=== PATIENT | male | born 1950 | race Caucasian/White ===

== ENCOUNTER → 2018-03-06 13:05 | Outpatient (CLI) | payer MEDICARE, BC ==
[2012-05-17 08:49] VITALS: BMI 35.7
== END | disposition home or self-care (01) ==
LOC: D.CT 13:05
DX: M25.551 Pain in right hip (principal)

== ENCOUNTER → 2018-03-23 13:11 | Outpatient (CLI) | payer MEDICARE, BC ==
[2012-05-17 08:49] VITALS: BMI 35.7
== END | disposition home or self-care (01) ==
LOC: D.MRI 13:11
DX: M25.551 Pain in right hip (principal)

== ENCOUNTER → 2018-05-07 09:06 | Outpatient (CLI) | payer MEDICARE, BC ==
[2012-05-17 08:49] VITALS: BMI 35.7
== END | disposition home or self-care (01) ==
LOC: D.SP 09:06 → D.RAD 10:00 → D.SP 10:00
DX: M25.551 Pain in right hip (principal); Z01.812 Encounter for preprocedural laboratory examination

== ENCOUNTER → 2018-06-18 12:42 | Outpatient (CLI) | payer MEDICARE, BC ==
[2012-05-17 08:49] VITALS: BMI 35.7
== END | disposition home or self-care (01) ==
LOC: D.LABREF 12:42
DX: M16.11 Unilateral primary osteoarthritis, right hip (principal); Z11.8 Encounter for screening for other infectious and parasitic diseases

== ENCOUNTER 2018-07-18 10:00 | Inpatient (IN) | payer MEDICARE, BC ==
[~2018-07-18] VITALS: Ht 185.4 cm; Wt 125.0 kg
[~2018-07-18 10:00] MED LIST: MOBIC7.5 MG PO; OMEPRAZOLE20 M1 PO; PRAVACHOL40 MG PO
[2018-07-18 11:42] LABS: BASOPHILS 0.6 % (0-2); EOSINOPHILS 4.3 % (0-7); HEMOGLOBIN 15.8 g/dL (13.5-17.5); IMMATURE GRANULOCYTES 3.2 % (0-5); LYMPHOCYTES 23.9 % (15-50); MCH 32.3 pg (26.0-34.0); MCHC 35.9 g/dL (31.0-37.0); MEAN PLATELET VOLUME 9.3 fL (7.4-10.4); MONOCYTES 9.9 % (2-11); NEUTROPHILS 58.1 % (40-80); PLATELET COUNT 239 10x3/uL (130-400); RBC 4.89 10x6/uL (4.20-6.10); RDW 12.2 % (11.5-14.5); WBC 7.3 10x3/uL (4.8-10.8)
[2018-07-18 11:52] LABS: APTT 31.1 SECONDS (22.8-39.4); CALC OSMOLALITY 282 mosm/kg (275-300); CALCIUM 8.7 mg/dL (8.5-10.1); CARBON DIOXIDE 30.4 mmol/L (21.0-32.0); CHLORIDE - SERUM 104 mmol/L (98-107); CREATININE - SERUM 0.9 mg/dL (0.6-1.3); GLUCOSE 83 mg/dL (74-106); INR 1.03 (0.85-1.17); POTASSIUM - SERUM 4.3 mmol/L (3.5-5.1); SODIUM 142 mmol/L (136-145); UREA NITROGEN 14 mg/dL (7-18); eGFR NON AFRICAN AMERICAN 89 mL/min (90-120)
[2018-07-18 11:58] LABS: APPEARANCE CLEAR (CLEAR); BACTERIA FEW /hpf (NONE SEEN); BILIRUBIN NEGATIVE (NEGATIVE); COLOR YELLOW (YELLOW); EPITHELIAL CELLS 0-5 /hpf (0-5); GLUCOSE NEGATIVE (NEGATIVE); KETONE NEGATIVE (NEGATIVE); MUCUS >1+ /lpf (NONE SEEN); NITRITE NEGATIVE (NEGATIVE); PROTEIN NEGATIVE (NEGATIVE); SPECIFIC GRAVITY 1.015 (1.005-1.020); UROBILINOGEN NORMAL (NORMAL); WHITE CELLS - URINE 0-5 /hpf (0-5)
[2018-07-24] VITALS (9 sets, daily range): BP systolic 115–146; BP diastolic 67–86; Ht 185.4 cm; Wt 125.0 kg
[2018-07-24] MEDS ORDERED: BAYER CHEWABLE81 MG PO (06:15)
--- NOTE | 2018-07-24 11:00 | NUR ---
PATIENT RECIEVED VIA STRETCHER FROM RECOVERY FOLLOWING TOTAL RIGHT HIP REPLACEMENT. DRESSING TO RIGHT HIP C/D/I. PATIENT RATES PAIN AT 5 WITH NO NEED FOR PAIN MEDICATIONS AT THIS TIME. CL IN REACH
--- NOTE | 2018-07-24 12:04 | OP ---
PATIENT NAME: MARCY BROWN MEDICAL RECORD: [id number] :50 LOCATION:D.MS [id number] ADMISSION DATE:07/24/18 SURGEON: ОЛЕГ RODRIGUEZ DO DATE OF OPERATION: 07/24/2018 PROCEDURE PERFORMED: Right total hip arthroplasty. PREOPERATIVE DIAGNOSIS: Right hip osteoarthritis. POSTOPERATIVE DIAGNOSIS: Right hip osteoarthritis. INDICATIONS: Mr. Brown is a 68-year-old male who presented to my office couple months ago complaining of right hip pain and immobility. He had no internal rotation and pain with any movement of his right hip. We got an intra-articular injection, which did relieve the pain for a few weeks, but then it came right back. He wanted the surgery as it was affecting his activities of daily living and could not bear the pain anymore. He was informed of the risks and benefits of the procedure including infection, bleeding, damage to nerve and vessels, need for further surgery, blood clots, and even and he signed the consent. SURGEON: Олег Rodriguez DO DESCRIPTION OF PROCEDURE: The patient received a block by anesthesia in the preoperative area, was given 80 mg of gentamicin and 3 grams of Ancef preoperatively. Taken to the operative suite, was sedated, then intubated, and placed over on to the [place] table and positioned. The right hip was prepped and draped in sterile fashion. A timeout was performed, everyone was in agreement with the correct side, site, patient, and procedure. The incision then began over the tensor fascia john muscle, first with a 10 blade, then a plasma knife was used to dissect down to the fascia. The fascia was incised. The fascia was taken anteriorly and the muscle belly posteriorly. The interval then was opened between the rectus and the tensor fascia john. The rectus was taken medially and the tensor fascia john laterally with an large Adson Reid. The fascia was then opened at the next layer and the ascending branch of lateral femoral circumflex artery was encountered. It was tied off and coagulated with the Aquamantys and then divided. The capsule was then exposed and was opened and then tagged with #2 Ethibond. The femoral neck was then exposed. Hohmann was placed around it and the neck cut was made. Once the neck cut was made, the head was removed and then a Charnley retractor was placed in the hip, exposing the acetabulum. Labrum was then removed as well as the pulvinar. Reaming then began, first medializing and then reaming up to a 54. This had good bleeding bone. A 54 cup was impacted into place and was done under fluoroscopy, it was very solid and attempted to move with a Donnie and it did not move at all, it was in good position. The femur was then exposed after having to release the posterior capsule and the ischiofemoral ligament of the pubofemoral ligament in order to get some external rotation. The canal finder and cookie cutter were then used and then broach was used up to a 15. This was trialled with a -3, seemed a little short and this was taken out and a 16 broach was used as the 15 was tad loose. A 16 broach was put in and a 16 implant was put in with a -3 neck and this was reduced and confirmed on x-ray to be in good position and very close to equal if not exactly equal lengths from the left hip. There were no fractures seen on x-ray. The wound was then thoroughly irrigated and Jeffery was placed in the wound and antibiotic powder of vancomycin, tobramycin and then the capsule was closed with the #2 Ethibond that was tied. The tensor fascia john fascia was then closed with #1 Vicryl, first a lzqiyq-ym-uomua stitch in the OPERATIVE REPORT [id number] MARCY BROWN running-locking stitch. This layer was irrigated as well and then a more Jeffery, vancomycin, and tobramycin powder was placed, and then the skin was closed with 2-0 Vicryl in an inverted interrupted fashion and 4-0 Monocryl running on the skin and Prineo glue was placed on the skin and this was covered with Telfa and Tegaderm. Upon closure, there was a small piece of glass noted on the table, it had antibiotic powder on it, likely from the antibiotic glass container, there was none seen in the wound and certainly nothing seen on x-ray, just as a side note. COMPLICATIONS: None. BLOOD LOSS: Approximately 200 mL. TRANSINT:[id number] Voice Confirmation ID: [id number] DOCUMENT ID: [id number] ОЛЕГ RODRIGUEZ DO at 1204 CC: PETEY ELLIS [id number] DICTATION DATE: 07/24/18929 STROBOSCOPE OPERATOR: 07/24/18 1115 ADM IN [place] [id number] [place] [id number]
--- NOTE | 2018-07-24 12:04 | OP ---
PATIENT NAME: MARCY BROWN MEDICAL RECORD: [id number] :50 LOCATION:O[facility]12 ADMISSION DATE:07/24/18 SURGEON: KEVIN RODRIGUEZ DO DATE OF OPERATION: 07/24/2018 ADDENDUM transport assistant was Ryley Miller, advanced nurse practitioner. Ryley assisted with closing and holding retractors, and the procedure could not have been performed without his assistance. TRANSINT:[id number] Voice Confirmation ID: [id number] DOCUMENT ID: [id number] KEVIN RODRIGUEZ DO at 1204 CC: [id number] DICTATION DATE: 07/24/18 1004 SHOWER ATTENDANT: 07/24/18 1106 ADM IN [place] [id number] [place] [address]
--- NOTE | 2018-07-24 20:30 | NUR ---
PT SITTING UP IN BED W/ DAUGHTER AT BEDSIDE. NO SIGNS OF DISTRESS. PT STATES PAIN 5/10. GAVE OXY ORDERED. PROVIDED PT W/ ICE PACK TO RIGHT HIP. IV RIGHT HAND INFUSING 1/2NS @ 50. SCDS IN PLACE. NO OTHER NEEDS OR COMPLAINTS AT THIS TIME. CL IN REACH, WILL CONTINUE TO MONITOR
[2018-07-25] VITALS: BP 114/62
[2018-07-25 04:00] VITALS: BP 132/57; BP 97/55
[2018-07-25 05:42] LABS: BASOPHILS 0 % (0-2); EOSINOPHILS 0 % (0-7); HEMATOCRIT 40.9 % (42.0-54.0); HEMOGLOBIN 14.2 g/dL (13.5-17.5); IMMATURE GRANULOCYTES 0.4 % (0-5); LYMPHOCYTES 4.6 % (15-50); MCH 31.7 pg (26.0-34.0); MCHC 34.7 g/dL (31.0-37.0); MCV 91.3 fL (80.0-100.0); MEAN PLATELET VOLUME 9.4 fL (7.4-10.4); MONOCYTES 5.4 % (2-11); NEUTROPHILS 89.6 % (40-80); PLATELET COUNT 237 10x3/uL (130-400); RBC 4.48 10x6/uL (4.20-6.10); RDW 12.6 % (11.5-14.5); WBC 13.5 10x3/uL (4.8-10.8)
[2018-07-25 06:23] LABS: ALBUMIN 3.1 g/dL (3.4-5.0); ALKALINE PHOSPHATASE 52 U/L (46-116); ALT (SGPT) 31 U/L (10-68); BILIRUBIN - TOTAL 0.44 mg/dL (0.2-1.3); CALC OSMOLALITY 281 mosm/kg (275-300); CALCIUM 8.2 mg/dL (8.5-10.1); CARBON DIOXIDE 25.5 mmol/L (21.0-32.0); CHLORIDE - SERUM 103 mmol/L (98-107); CREATININE - SERUM 0.9 mg/dL (0.6-1.3); GLUCOSE 147 mg/dL (74-106); POTASSIUM - SERUM 4.4 mmol/L (3.5-5.1); SODIUM 139 mmol/L (136-145); UREA NITROGEN 14 mg/dL (7-18); eGFR NON AFRICAN AMERICAN 89 mL/min (90-120)
--- NOTE | 2018-07-25 08:42 | NUR ---
PT SITTING UP IN BED TALKING TO . DENIES PAIN. NO S/S OF ACUTE DISTRESS. CL IN PLACE.
[2018-07-25 10:04] VITALS: BP 113/62
[2018-07-25 17:34] VITALS: BP 109/58
--- NOTE | 2018-07-25 18:54 | NUR ---
PROFESSOR OF SPECIAL EDUCATION NOTE: PT RESTING IN BED WATCHING TV. DENIES PAIN. PT INQUIRING ABOUT REHAB. TOLD PT TO REQUEST TO SPEAK WITH CM IN THE AM. NO S/S OF ACUTE DISTRESS. CL IN PLACE.
--- NOTE | 2018-07-25 19:02 | NUR ---
OT NOTE: PT COMPLETED BED MOBILITY WITH SBA. PT COMPLETED EOB SITTING BALANCE WITH SBA/SPV. PT COMPLETED BUE AROM EXS FOR INCREASED AX TOLERANCE. PT COMPLETED SIMPLE HYGIENE TASKS WITH SET UP. THANK YOU, BETSEY MALLOY
--- NOTE | 2018-07-25 19:45 | NUR ---
PT SITTING UP ON SIDE OF BED, AT BEDSIDE. NO SIGNS OF DISTRESS. ALERT AND ORIENTED. PT USING WALKER FOR AMBULATION. IV RIGHT HAND SL. NO REDNESS AT INSERTION SITE, DRESSING CDI. INCISION TO RIGHT HIP CDI. PT STATES NO PAIN AT THIS TIME, ONLY SORENESS FROM WALKING TODAY. ASSISTED PT BACK INTO BED, SCDS IN PLACE. STATES NO COMPLAINTS OR NEEDS AT THIS TIME. CL IN REACH, WILL CONTINUE TO MONITOR
[2018-07-25 20:54] VITALS: BP 107/48
[2018-07-26 00:59] VITALS: BP 110/80
[2018-07-26 06:57] LABS: ALBUMIN 3.1 g/dL (3.4-5.0); ALKALINE PHOSPHATASE 53 U/L (46-116); ALT (SGPT) 26 U/L (10-68); BILIRUBIN - TOTAL 0.47 mg/dL (0.2-1.3); CALCIUM 8.3 mg/dL (8.5-10.1); CARBON DIOXIDE 29.9 mmol/L (21.0-32.0); CHLORIDE - SERUM 105 mmol/L (98-107); CREATININE - SERUM 0.8 mg/dL (0.6-1.3); POTASSIUM - SERUM 4.3 mmol/L (3.5-5.1); PROTEIN - SERUM 5.6 g/dL (6.4-8.2); SODIUM 142 mmol/L (136-145); eGFR NON AFRICAN AMERICAN > 90 mL/min (90-120)
[2018-07-26 06:58] LABS: CALC OSMOLALITY 284 mosm/kg (275-300); GLUCOSE 95 mg/dL (74-106); UREA NITROGEN 18 mg/dL (7-18)
[2018-07-26 07:16] LABS: BASOPHILS 0.3 % (0-2); EOSINOPHILS 1.2 % (0-7); HEMATOCRIT 38.2 % (42.0-54.0); HEMOGLOBIN 12.9 g/dL (13.5-17.5); IMMATURE GRANULOCYTES 0.3 % (0-5); LYMPHOCYTES 23.5 % (15-50); MCH 31.5 pg (26.0-34.0); MCHC 33.8 g/dL (31.0-37.0); MEAN PLATELET VOLUME 9.5 fL (7.4-10.4); MONOCYTES 10.3 % (2-11); NEUTROPHILS 64.4 % (40-80); PLATELET COUNT 204 10x3/uL (130-400); RBC 4.09 10x6/uL (4.20-6.10); RDW 12.9 % (11.5-14.5)
[2018-07-26 07:30] LABS: WBC 6.8 10x3/uL (4.8-10.8)
[2018-07-26 07:31] LABS: MCV 93.4 fL (80.0-100.0)
--- NOTE | 2018-07-26 07:56 | NUR ---
REC'D IN BED AWAKE AND ALERT. RESP EVEN AND UNLABORED WITH NO DISTRESS. CAN EXPRESS NEEDS AND WANTS. C/O PAIN RATING 3/10 ON PAIN SCALE WAS MEDICATED WITH OXY IR 5 MG PER ORDERS. ASSESSMENT COMPLETED. C/L IN REACH AT BEDSIDE.
[2018-07-26 08:46] VITALS: BP 127/73
--- NOTE | 2018-07-26 11:19 | MORECARE ---
CASE MANAGEMENT DISCHARGE SUMMARY PATIENT: MARCY BROWN UNIT: [id number] ADM DATE: 07/24/18 AGE: 68 : 50 SEX: M ROOM/BED: D.2212 AUTHOR: ADAIR ANAYA PHYSICIAN: REFERRING PHYSICIAN: KEVIN RODRIGUEZ DO DATE OF SERVICE: 07/26/18 Discharge Plan Patient Name: [facility]ARCY BROWN [facility] [facility] 1950 Planned Disposition: Home or Self Care Anticipated Discharge Date: Discharge Date: Expected LOS: Initial Reviewer: [email or web address] Initial Review Date: 07/24/2018 Generated: 07/26/18 12:18 pm DCPIA - Discharge Planning Initial Assessment Updated by [email or web address]: Ariella Villeda on 07/26/18 11:16 am * Is the patient Alert and Oriented? Yes * How many steps to enter\exit or inside your home? * PCP RHONDA * Pharmacy [facility] [address] * Preadmission Environment Home with Family * ADLs Independent * Equipment Shower Chair * List name and contact numbers for known caregivers / representatives who currently or will assist patient after discharge: NORM [phone] * Verbal permission to speak to the caregivers and representatives has been obtained from the patient. Yes * Community resources currently utilized None * Additional services required to return to the preadmission environment? Yes * Can the patient safely return to the preadmission environment? Yes * Has this patient been hospitalized within the prior 30 days at any hospital? No External Providers External Provider: [facility] Next Contact Date: Service Request Date: Service Type: Resolution: Reviewer: Comments: Patient Name: MARCY BROWN Page [id number] at 1119 All edits/amendments must be made on the electronic document DICTATION DATE: 07/26/181117 MAINTENANCE ENGINEER: IRAM 07/26/181117 RPT#: [id number] DC DATE: STATUS: ADM IN [facility] [address] [place] [address] END OF REPORT
--- NOTE | 2018-07-26 11:26 | MORECARE ---
CASE MANAGEMENT DISCHARGE SUMMARY PATIENT: MARCY BROWN UNIT: [id number] ADM DATE: 07/24/18 AGE: 68 : 50 SEX: M ROOM/BED: D.2212 AUTHOR: ADAIR ANAYA PHYSICIAN: REFERRING PHYSICIAN: KEVIN RODRIGUEZ DO DATE OF SERVICE: 07/26/18 Discharge Plan Patient Name: MARCY BROWN Facility: [facility]:[place] : 1950 Planned Disposition: Home or Self Care Anticipated Discharge Date: Discharge Date: Expected LOS: Initial Reviewer: [email or web address] Initial Review Date: 07/24/2018 Generated: 07/26/18 12:26 pm Comments DCP- Discharge Planning Updated by [email or web address]: Ariella Villeda on 07/26/18 10:[address] Patient Name: MARCY BROWN Admission Status: Elective Accout number: [id number] Admission Date: 07-24-2018 : 1950 Admission Diagnosis: Attending: KEVIN RODRIGUEZ Current LOS: 2 Anticipated DC Date: Planned Disposition: Home or Self Care Primary Insurance: MEDICARE A & B Discharge Planning Comments: CM met with patient to assess discharge planning needs. Patient lives independently with his at home where he plans to return at discharge today. He has one step in his home. He does have a shower chair at home. He will need a walker and BSC at [place]. I have ordered this through [facility] & they will deliver to the hospital. He would like to do his PT at [facility]. I have made that appointment for Sunday 07/30 @ 10:45 am. I spoke with Henry. Patient's will be the one to drive him home at [place]. CM will continue to follow and assist with DC planning as needed Paleology Professor: Ariella Villeda DCPIA - Discharge Planning Initial Assessment Updated by [email or web address]: Ariella Villeda on 07/26/18 11:16 am * Is the patient Alert and Oriented? Yes * How many steps to enter\exit or inside your home? * PCP RHONDA * Pharmacy [facility] [address] * Preadmission Environment Home with Family * ADLs Independent * Equipment Shower Chair * List name and contact numbers for known caregivers / representatives who currently or will assist patient after discharge: NORM [phone] * Verbal permission to speak to the caregivers and representatives has been obtained from the patient. Yes * Community resources currently utilized None * Additional services required to return to the preadmission environment? Yes * Can the patient safely return to the preadmission environment? Yes * Has this patient been hospitalized within the prior 30 days at any hospital? No Last DP export: 07/26/18 10:19 a Patient Name: MARCY BROWN Page 47299 at 1126 All edits/amendments must be made on the electronic document DICTATION DATE: 07/26/18 112 GUN STRIPER: IRAM 07/26/18 112 RPT#: [id number] DC DATE: STATUS: ADM IN [facility] [address] [place] [address] END OF REPORT
[2018-07-26] MEDS ORDERED: KEFLEX500 MG PO (12:12)
[2018-07-26] MEDS ORDERED: BAYER CHEWABLE81 MG PO (12:12)
[2018-07-26] MEDS ORDERED: OXYCODONE HCL5 M1 PO (12:13)
--- NOTE | 2018-07-26 12:45 | NUR ---
OT NOTE: UPON ENTERING ROOM, WAS AT BEDSIDE AND PT WAS DRESSED AND READY TO GO HOME. HE REPORTED GETTING UP SEVERAL TIMES TODAY WITHOUT ASSIST AND AMB IN ROOM WITH WALKER. QUESTIONS ANSWERED REGARDING OUT PT THERAPY. ALSO ANSWERED QUESTIONS REGARDING ELEVATED TOILET SEATS AND OTHER ADAP EQUIP THAT HE MAY NEED WHEN GETTTING HOME. REPORTED VERY MINIMAL PAIN AND WAS ABLE TO GET IN AND OUT OF BED WITHOUT ASSIST. OUMOU FRAIRE, OTR/L
--- NOTE | 2018-07-26 15:23 | NUR ---
DC HOME AT THIS TIME PT AND AND VOICE UNDERSTANDING OF DC ORDERS. IV DC. WAS IN STABLE CONDITION UPON DEPARTURE.
--- NOTE | 2018-07-27 11:50 | MORECARE ---
CASE MANAGEMENT DISCHARGE SUMMARY PATIENT: MARCY BROWN UNIT: [id number] ADM DATE: 07/24/18 AGE: 68 : 50 SEX: M ROOM/BED: D.2212 AUTHOR: ADAIR ANAYA PHYSICIAN: REFERRING PHYSICIAN: KEVIN RODRIGUEZ DO DATE OF SERVICE: 07/27/18 Discharge Plan Patient Name: MARCY BROWN Facility: [facility]:[place] : 1950 Planned Disposition: Home or Self Care Anticipated Discharge Date: Discharge Date: 07/26/2018 Expected LOS: 0 Initial Reviewer: [email or web address] Initial Review Date: 07/24/2018 Generated: 07/27/18 12:49 pm Comments DCP- Discharge Planning Updated by [email or web address]: Ariella Villeda on 07/26/18 10:[address] Patient Name: MARCY BROWN Admission Status: Elective Accout number: [id number] Admission Date: 07-24-2018 : 1950 Admission Diagnosis: Attending: KEVIN RODRIGUEZ Current LOS: 2 Anticipated DC Date: Planned Disposition: Home or Self Care Primary Insurance: MEDICARE A & B Discharge Planning Comments: CM met with patient to assess discharge planning needs. Patient lives independently with his at home where he plans to return at discharge today. He has one step in his home. He does have a shower chair at home. He will need a walker and BSC at [place]. I have ordered this through [facility] & they will deliver to the hospital. He would like to do his PT at [facility]. I have made that appointment for Sunday 07/30 @ 10:45 am. I spoke with Henry. Patient's will be the one to drive him home at [place]. CM will continue to follow and assist with DC planning as needed Automotive Refinish Technician: Ariella Villeda DCPIA - Discharge Planning Initial Assessment Updated by [email or web address]: Ariella Villeda on 07/26/18 11:16 am * Is the patient Alert and Oriented? Yes * How many steps to enter\exit or inside your home? * PCP RHONDA * Pharmacy [facility] [address] * Preadmission Environment Home with Family * ADLs Independent * Equipment Shower Chair * List name and contact numbers for known caregivers / representatives who currently or will assist patient after discharge: NORM [phone] * Verbal permission to speak to the caregivers and representatives has been obtained from the patient. Yes * Community resources currently utilized None * Additional services required to return to the preadmission environment? Yes * Can the patient safely return to the preadmission environment? Yes * Has this patient been hospitalized within the prior 30 days at any hospital? No Last DP export: 07/26/18 10:26 a Patient Name: MARCY BROWN Page 07144 at 1150 All edits/amendments must be made on the electronic document DICTATION DATE: 07/27/181148 INSTITUTION LIBRARIAN: IRAM 07/27/18 1149 RPT#: [id number] DC DATE:07/26/18 STATUS: DIS IN [facility] [address] [place] [address] END OF REPORT
== END 2018-07-26 15:25 | disposition home or self-care (01) | DRG 470 ==
LOC: D.SDCHOLD 07-24 05:00 → D.MS 07-24 05:00 → D.SDCHOLD 07-24 07:00 → D.MS 07-24 10:40
PROVIDERS: Family Medicine; ADMIT Orthopaedic Surgery
PROC: 0SR90JZ Replacement of Right Hip Joint with Synthetic Substitute, Open Approach (ICD-10-PCS; principal; 2018-07-24 07:00)
DX: M16.11 Unilateral primary osteoarthritis, right hip (principal); D62 Acute posthemorrhagic anemia; E78.5 Hyperlipidemia, unspecified

== ENCOUNTER → 2019-02-12 07:28 | Outpatient (CLI) | payer MEDICARE, BC ==
[2018-07-24 12:05] VITALS: BMI 36.3
[~2019-02-12 07:28] MED LIST changes: +BAYER CHEWABLE81 MG PO; +KEFLEX500 MG PO; +OXYCODONE HCL5 M1 PO
== END | disposition home or self-care (01) ==
LOC: D.CT 07:28
PROVIDERS: ATTEND Orthopaedic Surgery
DX: K40.90 Unilateral inguinal hernia, without obstruction or gangrene, not specified as recurrent (principal)

== ENCOUNTER → 2019-04-08 17:07 | Outpatient (CLI) | payer MEDICARE, BC ==
[2018-07-24 12:05] VITALS: BMI 36.3
[~2019-04-08 17:07] MED LIST changes: +CRANBERRY EXTRACT PO; +MAGNESIUM OXID250 MG PO; +OSTEO BI-FLEX1 EAC1 PO; +ULTRAM50 MG PO; +VITAMIN D31000 UNI2 PO; +VITAMIN D5000 UNIT PO
== END | disposition home or self-care (01) ==
LOC: D.LABREF 17:07
PROVIDERS: ATTEND Orthopaedic Surgery
DX: M17.12 Unilateral primary osteoarthritis, left knee (principal)

== ENCOUNTER 2019-04-16 11:30 | Inpatient (IN) | payer MEDICARE, BC ==
[~2019-04-16] VITALS: Ht 185.4 cm; Wt 118.2 kg
[~2019-04-16 11:30] MED LIST changes: -CRANBERRY EXTRACT PO; -MAGNESIUM OXID250 MG PO; -OSTEO BI-FLEX1 EAC1 PO; -ULTRAM50 MG PO; -VITAMIN D31000 UNI2 PO; -VITAMIN D5000 UNIT PO
[2019-06-03] MEDS ORDERED: CRANBERRY EXTRACT PO (08:52)
[2019-06-03] MEDS ORDERED: VITAMIN D31000 UNI2 PO (08:52)
[2019-06-03] MEDS ORDERED: ULTRAM50 MG PO (08:52)
[2019-06-03] MEDS ORDERED: OSTEO BI-FLEX1 EAC1 PO (08:53)
[2019-06-03 09:55] LABS: BASOPHILS 0.2 % (0-2); EOSINOPHILS 4.8 % (0-7); HEMATOCRIT 43.7 % (42.0-54.0); HEMOGLOBIN 15.3 g/dL (13.5-17.5); IMMATURE GRANULOCYTES 0.5 % (0-5); LYMPHOCYTES 29.1 % (15-50); MCH 32.3 pg (26.0-34.0); MCV 92.4 fL (80.0-100.0); MEAN PLATELET VOLUME 9.2 fL (7.4-10.4); MONOCYTES 10.3 % (2-11); NEUTROPHILS 55.1 % (40-80); PLATELET COUNT 177 10x3/uL (130-400); RBC 4.73 10x6/uL (4.20-6.10); RDW 12.7 % (11.5-14.5); WBC 4.4 10x3/uL (4.8-10.8)
[2019-06-03 10:04] LABS: APPEARANCE CLEAR (CLEAR); BILIRUBIN NEGATIVE (NEGATIVE); COLOR DK YELLOW (YELLOW); GLUCOSE NEGATIVE (NEGATIVE); KETONE NEGATIVE (NEGATIVE); NITRITE NEGATIVE (NEGATIVE); PROTEIN NEGATIVE (NEGATIVE); SPECIFIC GRAVITY 1.015 (1.005-1.020); UROBILINOGEN NORMAL (NORMAL)
[2019-06-03 10:05] LABS: APTT 31.2 SECONDS (22.8-39.4); INR 1.03 (0.85-1.17)
[2019-06-03 10:12] LABS: CALC OSMOLALITY 279 mosm/kg (275-300); CALCIUM 8.7 mg/dL (8.5-10.1); CARBON DIOXIDE 28.9 mmol/L (21.0-32.0); CHLORIDE - SERUM 106 mmol/L (98-107); CREATININE - SERUM 0.7 mg/dL (0.6-1.3); GLUCOSE 103 mg/dL (74-106); POTASSIUM - SERUM 4.3 mmol/L (3.5-5.1); SODIUM 139 mmol/L (136-145); UREA NITROGEN 17 mg/dL (7-18); eGFR NON AFRICAN AMERICAN > 90 mL/min (90-120)
[2019-06-04] VITALS (11 sets, daily range): BP systolic 106–136; BP diastolic 61–82; Ht 185.4 cm; Wt 118.2 kg
[2019-06-04] MEDS ORDERED: BAYER CHEWABLE81 MG PO (06:16)
[2019-06-04] MEDS ORDERED: MAGNESIUM OXID250 MG PO (06:17)
[2019-06-04] MEDS ORDERED: VITAMIN D5000 UNIT PO (06:17)
--- NOTE | 2019-06-04 08:06 | NUR ---
PLASMA BLADE SET TO 6/8 BOVIE PAD RIGHT THIGH [id number] EXP 07/18/20 PREPPED LEFT LEG FROM UPPER THIGH TO TOES CIRCUMFERENTIALLY WITH ALCOHOL/HIBICLENS AND DRIED WITH A TOWEL. THEN PREPPED WITH CHLORAPREP. STERILE GOWN AND GLOVES WORN DURING PREP. TRAFFIC MONITORED IN AND OUT OF ROOM AND KEPT TO A MINIMUM. IRRIGATED WITH NORMAL SALINE AND STERILE BETADINE
--- NOTE | 2019-06-04 12:39 | OP ---
PATIENT NAME: MARCY BROWN MEDICAL RECORD: [id number] :50 LOCATION:D.MS Lott2226 ADMISSION DATE:06/04/19 SURGEON: ОЛЕГ RODRIGUEZ DO DATE OF OPERATION: 06/04/2019 PROCEDURE PERFORMED: Left total knee arthroplasty. PREOPERATIVE DIAGNOSIS: Left knee osteoarthritis. POSTOPERATIVE DIAGNOSIS: Left knee osteoarthritis. INDICATIONS: Mr. Brown is a 69-year-old male who has had left knee pain for quite some time. He has been dealing with injections and other nonoperative treatment to no avail. He is tired of dealing with the pain and suffering and affecting his activities of daily living and wanted something surgically done. Informed him of the risks and benefits of the procedure including infection, bleeding, damage to nerves and vessels, failure of implants, loosening, continued pain, loss of range of motion, blood clots, and even and he signed the consent. I was assisted by Baron Miller, advanced nurse practitioner. He assisted with closing and holding retractors as well as Ritchie Llanes, certified surgical assistant project manager. SURGEON: Олег Rodriguez DO DESCRIPTION OF PROCEDURE: The patient received a block by anesthesia in the preoperative area. He was given 2 grams Ancef and 80 mg gentamicin preoperatively. He was taken to the operative suite, laid in supine position, given general anesthetic. LMA was placed. Left lower extremity was then prepped and draped in sterile fashion. A timeout was performed and everyone was in agreement with the correct side, site, patient and procedure. Once that was completed, he was prepped and draped. I reprepped over the skin of the anterior knee with the ChloraPrep and then I marked out the incision after that, dried after 3 minutes and then placed Ioban over it. The incision then began after the patient received a gram of TXA down through the skin to the capsule. Fresh 10-blade was used to medial parapatellar approach and the knee was extended and part of the fat pad was removed and the patella was milled down and the ACL was removed. The femoral canal was then entered and the distal femur was cut. The proximal tibia was exposed and cut as well off a guide, cut 2 more off the tibia and then 2 more off the femur in order to fit the 10 extension block and this fit very well. The menisci were removed. Any bleeding was coagulated with Aquamantys throughout the procedure. The femur was then flexed up and sized to be a 77.0 and chamfer cuts were made. Once chamfer cuts were made, the tibial poly and tray was floated in and rotation was marked. The lug holes for the patella and the femur were drilled at that time and then the tibia was exposed, sized to be 75, it was drilled and punched and extra holes put in the tibia. The cement was then mixed. Cement was placed in the tibia and on the implant, impacted into place. Excess cement was removed. The femur was then impacted on and poly in between and brought to extension. The patella holes were cleaned out and re-drilled to make it more deeper and the cement was placed in them and on the poly and a squeezer was held into place while the cement dried. Excess cement was removed. We then irrigated the knee thoroughly and then a mixture of 500 mL of normal saline and 17 fluid ounces of 10% povidone iodine was placed in the wound solution and left for 3 minutes. This was then suctioned out. We sized and tried a deep dish anterior stabilized poly, it was too tight and did not have the motion we wanted and therefore a CR standard 10 poly was placed and OPERATIVE REPORT [id number] KEVINMARCY Harkins fit very well. Had good motion, flexion, extension, very stable in extension and flexion and varus valgus stability. The knee was then thoroughly irrigated, placed Jeffery and vancomycin and tobramycin powder in the wound. The capsule was then closed with #2 Ethibond in a pbxcoq-ch-iadmw fashion, skin with 2-0 Vicryl inverted interrupted fashion and a ZipLine placed on the knee and Adaptic, 4 x 4s, ABD, Webril, Alexsander wrap was then placed on the knee. He was then awakened and taken to recovery in stable condition. The poly was locked into place with a locking bar prior to closure of the capsule. He was awakened and taken to recovery in stable condition. Blood loss was approximately 200 mL. COMPLICATIONS: None. TRANSINT:[id number] Voice Confirmation ID: [id number] DOCUMENT ID: [id number] ОЛЕГ RODRIGUEZ DO at 1239 CC: [id number] DICTATION DATE: 06/04/19928 CANDLE MOLDER MACHINE: 06/04/19 1202 ADM IN [facility] [address] [place] [id number]
--- NOTE | 2019-06-04 13:00 | NUR ---
C/O INTENSE LEFT KNEE PAIN LEVEL 7. GIVEN 20MG OXY IR WITH 50MG VISTIRIL PO FOR SAME. WILL MONITOR.
--- NOTE | 2019-06-04 13:45 | NUR ---
WORKED WITH PT AT BEDSIDE. C/O NAUSEA WITH ACTIVITY. WILL MONITOR.
--- NOTE | 2019-06-04 15:42 | NUR ---
RESTING QUIETLY WITH EYES CLOSED.
--- NOTE | 2019-06-04 18:35 | NUR ---
ATE ALL OF SUPPER. DENIES NEEDS. NO CHANGES NOTED.
--- NOTE | 2019-06-04 20:00 | NUR ---
ASSESSMENT SPER FLOWSHEET. DRSG TO LEFT KNEE C/D/I CEE ARAUJO AND GAVI OSEI IN PLACE LT.LEG IN CPM MACHINE. IV PATENT RT HAND WITH NS AT 50CC'S/HR. O2 ON 2L/M PER NC. NO DISTRESS.SCD TO RT LEG FOR DVT MEASURES.
--- NOTE | 2019-06-04 21:30 | NUR ---
MEDS GIVEN PER AUG. DENIES NEEDS CPM OFF AT THIS TIME BODY IN GOOD ALIGNMENT.
--- NOTE | 2019-06-05 | NUR ---
EYES CLOSED RESPIRATIONS WITH EASE AND UNLABORED. MEDS PER AUG.
[2019-06-05 01:04] VITALS: BP 114/58
--- NOTE | 2019-06-05 03:00 | NUR ---
RESTING QUIETLY VOIDS IN URINAL. SR UP X2 CAQLL LIGHT WITHIN REACH.
--- NOTE | 2019-06-05 05:39 | NUR ---
CPM PLACED BACK ON LEFT LEG PER VAMPER'S.
[2019-06-05 05:50] VITALS: BP 117/63
[2019-06-05 06:33] LABS: BASOPHILS 0 % (0-2); EOSINOPHILS 0 % (0-7); HEMATOCRIT 40.1 % (42.0-54.0); HEMOGLOBIN 13.4 g/dL (13.5-17.5); IMMATURE GRANULOCYTES 0.1 % (0-5); LYMPHOCYTES 10.4 % (15-50); MCH 31.8 pg (26.0-34.0); MCHC 33.4 g/dL (31.0-37.0); MEAN PLATELET VOLUME 9.5 fL (7.4-10.4); MONOCYTES 10.9 % (2-11); NEUTROPHILS 78.6 % (40-80); PLATELET COUNT 189 10x3/uL (130-400); RBC 4.22 10x6/uL (4.20-6.10)
[2019-06-05 06:38] LABS: WBC 7.5 10x3/uL (4.8-10.8)
[2019-06-05 06:44] LABS: CALC OSMOLALITY 282 mosm/kg (275-300); CALCIUM 8.1 mg/dL (8.5-10.1); CARBON DIOXIDE 28.5 mmol/L (21.0-32.0); CHLORIDE - SERUM 106 mmol/L (98-107); CREATININE - SERUM 0.8 mg/dL (0.6-1.3); GLUCOSE 106 mg/dL (74-106); POTASSIUM - SERUM 4.4 mmol/L (3.5-5.1); SODIUM 141 mmol/L (136-145); UREA NITROGEN 17 mg/dL (7-18); eGFR NON AFRICAN AMERICAN > 90 mL/min (90-120)
[2019-06-05 08:11] VITALS: BP 111/60
--- NOTE | 2019-06-05 09:07 | NUR ---
RESTING IN BED, CPM IN PLACE TO LEFT KNEE, IN ROOM, CONT TO MONITOR PAIN
[2019-06-05 12:15] VITALS: BP 132/80
[2019-06-05 16:09] VITALS: BP 118/70
[2019-06-05 20:00] VITALS: BP 116/61
--- NOTE | 2019-06-05 21:20 | NUR ---
LYING IN BED. ALERT AND ORIENTED X4. CEE WRAP NOTED TO LT KNEE. PEDAL PULSES PRESENT BILAT. BRUISES NOTED TO BUE. SCD NOTED TO RLE. PLEXI NOTED TO LT FOOT. RATES PAIN 2. DENIES NEED FOR PAIN MED. RESP EVEN AND NONLABORED. 1/2 NS @ 50 MLHR INFUSING IN RT HAND WITHOUT DIFF. SR ELEVATED X2. CL IN REACH.
[2019-06-06] VITALS: BP 132/80
--- NOTE | 2019-06-06 01:16 | NUR ---
LYING IN BED. IV BEEPING. DENIES NEED FOR PAIN MED. RESP NONLABORED. NO DISTRESS. CL IN REACH.
[2019-06-06 04:00] VITALS: BP 137/82
[2019-06-06 06:37] LABS: CALC OSMOLALITY 283 mosm/kg (275-300); CALCIUM 8.3 mg/dL (8.5-10.1); CARBON DIOXIDE 29.7 mmol/L (21.0-32.0); CHLORIDE - SERUM 108 mmol/L (98-107); CREATININE - SERUM 0.7 mg/dL (0.6-1.3); GLUCOSE 102 mg/dL (74-106); POTASSIUM - SERUM 3.9 mmol/L (3.5-5.1); SODIUM 142 mmol/L (136-145); UREA NITROGEN 14 mg/dL (7-18); eGFR NON AFRICAN AMERICAN > 90 mL/min (90-120)
[2019-06-06 06:45] LABS: HEMATOCRIT 34.2 % (42.0-54.0); HEMOGLOBIN 12.1 g/dL (13.5-17.5); LYMPHOCYTES 27.6 % (15-50); MCH 32.7 pg (26.0-34.0); MCHC 35.4 g/dL (31.0-37.0); MEAN PLATELET VOLUME 9.2 fL (7.4-10.4); NEUTROPHILS 61.9 % (40-80); RDW 12.4 % (11.5-14.5)
[2019-06-06 06:52] LABS: MCV 92.4 fL (80.0-100.0); PLATELET COUNT 145 10x3/uL (130-400); WBC 5.1 10x3/uL (4.8-10.8)
--- NOTE | 2019-06-06 07:00 | NUR ---
ALERT AND ORIENTED, RESTING IN BED. NO C/O PAIN. NO S/S OF ACUTE DISTRESS NOTED. POD #2 LTK, DRESSING C/D/I. CEE DRESSING AND GAVI HOSE TO LEFT, SCD TO RIGHT. ON CPM. IV TO RIGHT HAND, 1/2 NS INFUSING @ 50ML/HR. SITE WITHOUT REDNESS OR SWELLING. DENIES ANY NEEDS AT THIS TIME. CALL LIGHT IN REACH. WILL CONTINUE TO MONITOR.
[2019-06-06] MEDS ORDERED: BAYER CHEWABLE81 MG PO (07:50)
[2019-06-06] MEDS ORDERED: KEFLEX500 MG PO (07:51)
[2019-06-06] MEDS ORDERED: OXYCODONE HCL5 M1 PO (07:52)
[2019-06-06 08:36] VITALS: BP 113/73; BP 145/94
--- NOTE | 2019-06-06 08:42 | MORECARE ---
CASE MANAGEMENT DISCHARGE SUMMARY PATIENT: MARCY BROWN UNIT: [id number] ADM DATE: 06/04/19 AGE: 69 : 50 SEX: M ROOM/BED: D.2226 AUTHOR: JACLYN,DOC PHYSICIAN: REFERRING PHYSICIAN: KEVIN RODRIGUEZ DO DATE OF SERVICE: 06/06/19 Discharge Plan Patient Name: MARCY BROWN Facility: [facility]:[place] : 1950 Planned Disposition: Home Anticipated Discharge Date: 06/06/19 Discharge Date: Expected LOS: 2 Initial Reviewer: [email or web address] Initial Review Date: 06/06/2019 Generated: 06/06/19 9:42 am Comments DCP- Discharge Planning Updated by [email or web address]: Rachael Cortez on 06/06/19 7:[address] Patient Name: MARCY BROWN Admission Status: Elective Accout number: [id number] Admission Date: 06-04-2019 : 1950 Admission Diagnosis: Attending: KEVIN RODRIGUEZ Current LOS: 2 Anticipated DC Date: 06-06-2019 Planned Disposition: Home Primary Insurance: MEDICARE A & B Discharge Planning Comments: CM met with patient to complete initial dc planning assessment. CM educated patient on the CM role and verbal consent given by patient to complete assessment. Patient lives at home with his spouse. At discharge patient plans to return and feels this is a safe discharge. CM discussed availability of home health, rehab services, and medical equipment. Patient states he had outpatient PT at [facility] with his hip and he would like OP PT for his knee at [facility] and prefers morning appointments. I called and left a message and faxed order. CM will continue to follow and will assist as needed with dc plans/needs. Navy Airspace Officer: Rachael Cortez DCPIA - Discharge Planning Initial Assessment Updated by [email or web address]: Rachael Cortez on 06/06/19 8:37 am * Is the patient Alert and Oriented? Yes * How many steps to enter\exit or inside your home? 1/0 * PCP Dr Butt * Pharmacy [facility] on [address] * Preadmission Environment Home with Family * ADLs Independent * Equipment Cane Other Shower Chair Walker * Other Equipment CPM Ice Machine * List name and contact numbers for known caregivers / representatives who currently or will assist patient after discharge: Maame garner - [phone] * Verbal permission to speak to the caregivers and representatives has been obtained from the patient. Yes * Community resources currently utilized None * Additional services required to return to the preadmission environment? Yes * Can the patient safely return to the preadmission environment? Yes * Has this patient been hospitalized within the prior 30 days at any hospital? No External Providers [facility] Next Contact Date: Service Request Date: Service Type: Resolution: Reviewer: Comments: Patient Name: MARCY BROWN Page [id number] at 0842 All edits/amendments must be made on the electronic document DICTATION DATE: 06/06/19840 HARDWARE DEVELOPER: IRAM 06/06/19840 RPT#: [id number] DC DATE: STATUS: ADM IN [facility] [address] [place] [address] END OF REPORT
--- NOTE | 2019-06-06 10:28 | NUR ---
DISCHARGED PATIENT HOME VIA WHEELCHAIR WITH FAMILY. DISCONTINUED IV, CATHETER TIP INTACT. CHANGED DRESSING TO LEFT KNEE, REMOVED OLD DRESSING AND REPLACED WITH [place] DRESSING AND CEE WRAP. WENT OVER DISCHARGE INSTRUCTIONS WITH PATIENT AND , VERBALIZED UNDERSTANDING. DENIES ANYTHING FURTHER.
--- NOTE | 2019-06-06 11:24 | MORECARE ---
CASE MANAGEMENT DISCHARGE SUMMARY PATIENT: MARCY BROWN UNIT: [id number] ADM DATE: 06/04/19 AGE: 69 : 50 SEX: M ROOM/BED: D.2226 AUTHOR: ADAIR ANAYA PHYSICIAN: REFERRING PHYSICIAN: KEVIN RODRIGUEZ DO DATE OF SERVICE: 06/06/19 Discharge Plan Patient Name: MARCY BROWN Facility: [facility]:[place] : 1950 Planned Disposition: Home Anticipated Discharge Date: 06/06/19 Discharge Date: 06/06/2019 Expected LOS: 2 Initial Reviewer: [email or web address] Initial Review Date: 06/06/2019 Generated: 06/06/19 12:23 pm Comments DCP- Discharge Planning Updated by [email or web address]: Rachael Cortez on 06/06/19 10:[address] Patient Name: MARCY BROWN Encounter No: [id number] : 1950 Primary Insurance: MEDICARE A & B Anticipated DC Date: 06-06-2019 Planned Disposition: Home External Planned Provider: : DCP follow-up note: Patient and family in agreement with discharge plan. No changes to plan. I spoke with Chad in PT and he has an appointment Monday at 10am, I have informed patient and of first appointment time and date. Case management will follow and assist as needed. Rachael Diego DCP- Discharge Planning Updated by [email or web address]: Rachael Kaybrie on 06/06/19 7:[address] Patient Name: MARCY BROWN Admission Status: Elective Accout number: [id number] Admission Date: 06-04-2019 : 1950 Admission Diagnosis: Attending: KEVIN RODRIGUEZ Current LOS: 2 Anticipated DC Date: 06-06-2019 Planned Disposition: Home Primary Insurance: MEDICARE A & B Discharge Planning Comments: CM met with patient to complete initial dc planning assessment. CM educated patient on the CM role and verbal consent given by patient to complete assessment. Patient lives at home with his spouse. At discharge patient plans to return and feels this is a safe discharge. CM discussed availability of home health, rehab services, and medical equipment. Patient states he had outpatient PT at [facility] with his hip and he would like OP PT for his knee at [facility] and prefers morning appointments. I called and left a message and faxed order. CM will continue to follow and will assist as needed with dc plans/needs. Die Finisher: Rachael Cortez DCPIA - Discharge Planning Initial Assessment Updated by [email or web address]: Rachael Cortez on 06/06/19 8:37 am * Is the patient Alert and Oriented? Yes * How many steps to enter\exit or inside your home? 1/0 * PCP Dr Butt * Pharmacy [facility] on [address] * Preadmission Environment Home with Family * ADLs Independent * Equipment Cane Other Shower Chair Walker * Other Equipment CPM Ice Machine * List name and contact numbers for known caregivers / representatives who currently or will assist patient after discharge: Maame cbla - [phone] * Verbal permission to speak to the caregivers and representatives has been obtained from the patient. Yes * Community resources currently utilized None * Additional services required to return to the preadmission environment? Yes * Can the patient safely return to the preadmission environment? Yes * Has this patient been hospitalized within the prior 30 days at any hospital? No Last DP export: 06/06/19 7:42 a Patient Name: MARCY BROWN Page 22073 at 1124 All edits/amendments must be made on the electronic document DICTATION DATE: 06/06/191122 DOCK GUARD: IRAM 06/06/191122 RPT#: [id number] DC DATE:06/06/19 STATUS: DIS IN [facility] [address] [place] [address] END OF REPORT
--- NOTE | 2019-06-10 13:55 | MORECARE ---
CASE MANAGEMENT DISCHARGE SUMMARY PATIENT: MARCY BROWN UNIT: [id number] ADM DATE: 06/04/19 AGE: 69 : 50 SEX: M ROOM/BED: D.2226 AUTHOR: ADAIR ANAYA PHYSICIAN: REFERRING PHYSICIAN: KEVIN RODRIGUEZ DO DATE OF SERVICE: 06/10/19 Discharge Plan Patient Name: MARCY BROWN Facility: [facility]:[place] : 1950 Planned Disposition: Home Anticipated Discharge Date: 06/06/19 Discharge Date: 06/06/2019 Expected LOS: 2 Initial Reviewer: [email or web address] Initial Review Date: 06/06/2019 Generated: 06/10/19 2:54 pm Comments DCP- Discharge Planning Updated by [email or web address]: Rachael Cortez on 06/06/19 10:[address] Patient Name: MARCY BROWN Encounter No: [id number] : 1950 Primary Insurance: MEDICARE A & B Anticipated DC Date: 06-06-2019 Planned Disposition: Home External Planned Provider: : DCP follow-up note: Patient and family in agreement with discharge plan. No changes to plan. I spoke with Chad in PT and he has an appointment Monday at 10am, I have informed patient and of first appointment time and date. Case management will follow and assist as needed. Rachael Diego DCP- Discharge Planning Updated by [email or web address]: Rachael Kaybrie on 06/06/19 7:[address] Patient Name: MARCY BROWN Admission Status: Elective Accout number: [id number] Admission Date: 06-04-2019 : 1950 Admission Diagnosis: Attending: KEVIN RODRIGUEZ Current LOS: 2 Anticipated DC Date: 06-06-2019 Planned Disposition: Home Primary Insurance: MEDICARE A & B Discharge Planning Comments: CM met with patient to complete initial dc planning assessment. CM educated patient on the CM role and verbal consent given by patient to complete assessment. Patient lives at home with his spouse. At discharge patient plans to return and feels this is a safe discharge. CM discussed availability of home health, rehab services, and medical equipment. Patient states he had outpatient PT at [facility] with his hip and he would like OP PT for his knee at [facility] and prefers morning appointments. I called and left a message and faxed order. CM will continue to follow and will assist as needed with dc plans/needs. Granite Polisher Apprentice: Rachael Cortez DCPIA - Discharge Planning Initial Assessment Updated by [email or web address]: Rachael Cortez on 06/06/19 8:37 am * Is the patient Alert and Oriented? Yes * How many steps to enter\exit or inside your home? 1/0 * PCP Dr Butt * Pharmacy [facility] on [address] * Preadmission Environment Home with Family * ADLs Independent * Equipment Cane Other Shower Chair Walker * Other Equipment CPM Ice Machine * List name and contact numbers for known caregivers / representatives who currently or will assist patient after discharge: Maame qaox - [phone] * Verbal permission to speak to the caregivers and representatives has been obtained from the patient. Yes * Community resources currently utilized None * Additional services required to return to the preadmission environment? Yes * Can the patient safely return to the preadmission environment? Yes * Has this patient been hospitalized within the prior 30 days at any hospital? No Last DP export: 06/06/19 10:23 a Patient Name: MARCY BROWN Page 30128 at 1355 All edits/amendments must be made on the electronic document DICTATION DATE: 06/10/19 1355 DOCKMASTER: IRAM 06/10/19 1354 RPT#: [id number] DC DATE:06/06/19 STATUS: DIS IN [facility] [address] [place] [address] END OF REPORT
== END 2019-06-06 10:30 | disposition home or self-care (01) | DRG 470 ==
LOC: D.SDCHOLD 06-04 05:00 → D.MS 06-04 05:00 → D.SDCHOLD 06-04 07:00 → D.MS 06-04 10:38
PROVIDERS: Internal Medicine Nephrology; ADMIT Orthopaedic Surgery; ATTEND Orthopaedic Surgery
PROC: 0SRD0J9 Replacement of Left Knee Joint with Synthetic Substitute, Cemented, Open Approach (ICD-10-PCS; principal; 2019-06-04 07:00)
DX: M17.12 Unilateral primary osteoarthritis, left knee (principal); D62 Acute posthemorrhagic anemia; E78.5 Hyperlipidemia, unspecified; K21.9 Gastro-esophageal reflux disease without esophagitis

== ENCOUNTER → 2020-02-17 07:21 | Outpatient (CLI) | payer MEDICARE, BC ==
[2019-06-04 13:09] VITALS: BMI 34.3
[~2020-02-17 07:21] MED LIST changes: +CRANBERRY EXTRACT PO; +MAGNESIUM OXID250 MG PO; +OSTEO BI-FLEX1 EAC1 PO; +ULTRAM50 MG PO; +VITAMIN D31000 UNI2 PO; +VITAMIN D5000 UNIT PO
== END | disposition home or self-care (01) ==
LOC: D.MRI 07:21
PROVIDERS: ATTEND Orthopaedic Surgery
DX: M54.16 Radiculopathy, lumbar region (principal)

== ENCOUNTER → 2020-02-25 09:14 | Day surgery (SDC) | payer MEDICARE, BC ==
[2019-06-04 13:09] VITALS: BMI 34.3
--- NOTE | ~2020-02-25 | HEMODYNAMI ---
PATIENT:MARCY BROWN MEDICAL RECORD: [id number] : [birth year] LOCATION:[facility] ADMISSION DATE: 02/25/20 Generatedon:02/25/202010:25 Patient name: MARCY BROWN Patient #: [id number] SSN: : 1950 Date of study: 02/25/2020 Page: Of Hemodynamic Procedure Report Patient Data Patient Demographics Procedure consent was obtained First Name: MARCY Gender: Male Last Name: KEVIN : 1950 Middle Initial: EDWARD Age: 69 year(s) Patient #: [id number] Race: Unknown Additional ID: [id number] Contact details Address: [address] [place] [address] lane State: [place] City: [place] Zip code: [address] Admission Admission Data Admission Date: 02/25/2020 Admission Time: 9:14 Procedure Procedure Types Cath Procedure Peripheral Cath Diagnostic Procedure Miscellaneous Epidural Steroid Injection Procedure Description Procedure Date Procedure Date: 02/25/2020 Procedure Start Time: 10:12 Procedure Staff Name Function Олег Noonan MD Performing Physician Ervin Browning RT Monitor Evelina Mccoy RN Nurse Procedure Data Cath Procedure Fluoroscopy Diagnostic fluoroscopy Total fluoroscopy Time: 0.3 time: 0.3 min min Diagnostic fluoroscopy Total fluoroscopy dose: 7 dose: 7 mGy mGy Hemodynamics Rest Pre Cath Intra NCS Post Cath Procedure Log Time Note 9:59:45 Ervin Browning RT (R) (CV) sent for patient. Start room use. 9:59:58 Time tracking: Regular hours (M-F 7:00 - 5:00) 10:00:10 Patient received from Outpatients to IR Alert and oriented. Tansferred to table in Prone position. 10:00:14 Signed procedure consent form obtained from spouse. 10:00:19 Correct patient and procedure confirmed by team. 10:00:23 - 10:00:25 Pre-procedure instructions explained to patient. 10:00:25 Pre-op teaching completed and patient verbalized understanding. 10:01:33 Is patient on blood thinner?No 10:07:35 Lumbar area was prepped with betadine and draped in sterile fashion 10:12:17 Physician arrived 10:12:18 --------ALL STOP TIME OUT------ 10:12:22 Final Timeout: patient, procedure, and site verified with staff and physician. All members of the team are in agreement. 10:12:27 Lumbar site verified by team. 10:12:34 Sedation plan: Local Anesthetic Medication:Lidocaine 10:12:42 Procedure started. 10:12:43 Full Disclosure recording started 10:12:48 Local anesthetic to Lumbar area with Lidocaine 1% by Олег Noonan MD.INITIAL ACCESS ONLY 10:12:52 KIT EPIDURAL CATHETERIZATION opened to sterile field. 10:24:06 Procedure ended.(Physican Out) 10:24:15 Fluoroscopy time 00.30 minutes. 10:24:21 Fluoroscopy dose: 7 mGy 10:24:21 Flurop Dose total: 7 10:24:45 BANDAIDE APPLIED SITE STABLE PT. SENT HOME Device Usage Item Name Manufacture Quantity Catalog Hospital Part Current Minima l Lot# / Number Charge Number Stock Stock Serial# Code KIT EPIDURAL Teleflex 1 [id number] CATHETERIZATION Signature Audit [place] Stage Time Signature Unsigned Intra-Procedure 02/25/2020 Ervin 10:25:15 AM Nallely RT (R) (CV) [facility] [address] [place] [address]
== END | disposition home or self-care (01) ==
LOC: D.RAD 09:14
PROVIDERS: ATTEND Orthopaedic Surgery
DX: M51.26 Other intervertebral disc displacement, lumbar region (principal)